=== PATIENT | female | born 1990 | race Caucasian/White ===

== ENCOUNTER → 2018-01-20 | Day surgery (SDC) | payer BC ==
[~2018-01-20] MED LIST: HYDROmorphone 2 MG/ML VIAL IV; LIDOCAINE 1% PF 2 ML VIAL. ID; MORPHINE SULFATE 2 MG/ML DISP.SYRIN. IV; ONDANSETRON PF 4 MG/2 ML VIAL. IV; PROCHLORPERAZINE 10 MG/2 ML VIAL. IV; PROPOFOL 20 ML IV; PROPOFOL 60 ML IV; fentaNYL PF VIAL 100 MCG/2 ML VIAL IV
[2018-01-20 08:34] LABS: NEG OBC UR NEG; POS OBC UR POS; U PREG PATIENT NEGATIVE (NEG)
[2018-01-20] MEDS: IV RINGERS,LACTATED 1000ML 1,000 ML IV (08:40)
== END | disposition home or self-care (01) ==
LOC: ENDOS 08:11
DX: Z09 Encounter for follow-up examination after completed treatment for conditions other than malignant neoplasm (principal); K50.10 Crohn's disease of large intestine without complications; J45.909 Unspecified asthma, uncomplicated; F41.9 Anxiety disorder, unspecified; D64.9 Anemia, unspecified; K64.9 Unspecified hemorrhoids; K21.0 Gastro-esophageal reflux disease with esophagitis; K62.89 Other specified diseases of anus and rectum; K31.89 Other diseases of stomach and duodenum
CPT/HCPCS: 43239; 81025; 88305; 88342; J2704

== ENCOUNTER 2021-01-05 17:13 | Inpatient (IN) | payer BC ==
[~2021-01-05] VITALS: Ht 162.6 cm; Wt 77.1 kg
[~2021-01-05 17:13] MED LIST changes: +ADAL40PE SQ; +BIRTH CONTROL; -HYDROmorphone 2 MG/ML VIAL IV; -LIDOCAINE 1% PF 2 ML VIAL. ID; -MORPHINE SULFATE 2 MG/ML DISP.SYRIN. IV; +MULT-445 PO; -ONDANSETRON PF 4 MG/2 ML VIAL. IV; +PNV1TABL25 PO; -PROCHLORPERAZINE 10 MG/2 ML VIAL. IV; -PROPOFOL 20 ML IV; -PROPOFOL 60 ML IV; -fentaNYL PF VIAL 100 MCG/2 ML VIAL IV
[2021-01-05] MEDS ORDERED: OXYTOCIN 10 UNIT/ML VIAL. ONE (17:18)
[2021-01-05] MEDS ORDERED: OXYTOCIN 30 UNIT/500 ML PREMIX 500 ML IV ONE (17:18)
[2021-01-05] MEDS ORDERED: OXYTOCIN PREMIX 30 UNIT/500 ML NS BAG. IV ONE (18:00)
[2021-01-05] MEDS ORDERED: IV RINGERS,LACTATED 1000ML 1,000 ML IV SCH (18:00)
[2021-01-05] MEDS ORDERED: 0.9 % SODIUM CHLORIDE 10 ML DISP.SYRIN. IV PRN ×2 (18:00→18:30)
[2021-01-05] MEDS ORDERED: OXYTOCIN 30 UNIT/500 ML PREMIX 500 ML IV PRN ×3 (18:00→18:30)
[2021-01-05] MEDS ORDERED: LIDOCAINE 1% PF 30 ML VIAL. INJ PRN (18:00)
[2021-01-05 18:03] LABS: BASO # 0.1 x10^3/uL (0.0-0.2); BASO % 1 % (0-3); EOS # 0.5 x10^3/uL (0.0-0.7); EOS % 3 % (0-3); HEMATOCRIT 32.6 % (36.0-47.0); HEMOGLOBIN 10.9 g/dL (12.0-15.5); LYMPH # 2.9 x10^3/uL (1.0-4.8); LYMPH % 17 % (24-48); MEAN CORPUSCULAR HEMOGLOBIN 30 pg (25-35); MEAN CORPUSCULAR HGB CONC 34 g/dL (31-37); MEAN CORPUSCULAR VOLUME 88 fL (79-100); MONO # 1.2 x10^3/uL (0.0-1.1); MONO % 7 % (0-9); NEUT # 12.2 x10^3/uL (1.8-7.7); NEUT % 72 % (31-73); PLATELET COUNT 305 x10^3/uL (140-400); RED BLOOD COUNT 3.69 x10^6/uL (3.50-5.40); RED CELL DISTRIBUTION WIDTH 12.4 % (11.5-14.5); WHITE BLOOD COUNT 16.8 x10^3/uL (4.0-11.0)
[2021-01-05] MEDS ORDERED: fentaNYL PF VIAL 100 MCG/2 ML VIAL ONE (18:03)
--- NOTE | 2021-01-05 18:14 | PDOC1 ---
OB - History Hx of Present Care: Good Care Ultrasounds: Normal mid trimester US Obstetrical Complications: None Medical Complications: None Past Family/Social History * Past Medical, Surgical, Family and Obstetric Histories reviewed from chart. Blood Type: Unknown Rubella: Unknown RPR/VDRL: Unknown GBS Status: Unknown HBsAG: Unknown OB - Chief Complaint & HPI Date of Admission: Date of Admission: Jan 05, 2021 at 17:13 Chief Complaint/History : 7 Para: 2 EGA: 38 Reason for admission: active labor Admission Nurse Assessment Rev: Yes OB - Admission Exam Physical Exam Vitals: VS - Last 72 Hours, by Label Date Time Temp Pulse Resp B/P (MAP) Pulse Ox O2 Delivery O2 Flow Rate FiO2 01/05/21 18:04 Room Air HEENT: Normal Heart: Regular Rate Lungs: Clear Abdomen: Gravid, Non tender, Soft Extremities: Edema Reflexes: Normal Cervical Dilatation: 10cm Effacement: 100% Station: +3 Membranes: Ruptured Amniotic Fluid: Clear Heart Rate: Normal Accelerations: Accelerations Present Decelerations: No decelerations Contractions on Admission: < 5 Minutes Apart Intensity: Firm Text A: 38 wks IUP Active labor P: Arrived by ambulance with precipitous delivery shortly after arrival. FARRAH COOPER Jr, MD Jan 05, 2021 18:14
[2021-01-05] MEDS ORDERED: fentaNYL PF VIAL 100 MCG/2 ML VIAL IV ONE (18:15)
--- NOTE | 2021-01-05 18:22 | PDOC ---
VAGINAL DELIVERY DATE DATE: 01/05/21 TIME: 18:14 : 7 Para: 3 EGA: 38 VAGINAL DELIVERY: VTX VACCUM ASSISTED: No PLACENTA: Spontaneous 8/9 SEX: Male WEIGHT Weight [ pending ] Nuchal Cord: Yes, Times 2 (and true knot) Amniotic Fluid: Clear PAIN: Natural EPISIOTOMY: No EXTENSION: Yes (2nd degree midline laceration) REPAIRED WITH 2-0 vicryl EBL 300 ml COMPLICATIONS none CONDITION pt. stable Signs of Intrauterine Infectio: None Shoulder Dystocia: No FARRAH COOPER Jr, MD Jan 05, 2021 18:22
[2021-01-05] MEDS ORDERED: TDaP (Adacel) per PROTOCOL. MC PRN (18:30)
[2021-01-05] MEDS ORDERED: PHENYLEPH/MINERAL OIL/PETROLAT RECTAL OINTMENT TUBE. RC PRN (18:30)
[2021-01-05] MEDS ORDERED: DOCUSATE SODIUM 100 MG CAPSULE. PO PRN (18:30)
[2021-01-05] MEDS ORDERED: ZOLPIDEM 5 MG TABLET. PO PRN (18:30)
[2021-01-05] MEDS ORDERED: BENZOCAINE 20% TOPICAL AEROSOL SPRAY 57GM CAN. TP PRN (18:30)
[2021-01-05] MEDS ORDERED: HYDROCORTISONE 1% TOPICAL OINTMENT 30GM TUBE. TP PRN (18:30)
[2021-01-05] MEDS ORDERED: diphenhydrAMINE HCL 25 MG CAPSULE PO PRN (18:30)
[2021-01-05] MEDS ORDERED: ACETAMINOPHEN 325 MG TABLET. PO PRN (18:30)
[2021-01-05] MEDS ORDERED: MAGNESIUM HYDROXIDE 2,400 MG/30 ML ORAL.SUSP. PO PRN (18:30)
[2021-01-05] MEDS ORDERED: MAG HYDROX/ALUMINUM HYD/SIMETH 30 ML ORAL.SUSP PO PRN (18:30)
[2021-01-05] MEDS ORDERED: SIMETHICONE 80 MG TAB.CHEW PO PRN (18:30)
[2021-01-05] MEDS ORDERED: MMR per PROTOCOL. MC PRN (18:30)
[2021-01-05] MEDS: IBUPROFEN 400 MG TABLET. PO PRN (19:06)
[2021-01-05 20:10] VITALS: BP 109/80
[2021-01-05 21:30] VITALS: BP 119/62
[2021-01-05] MEDS: oxyCODONE/APAP 5/325 1 TAB TABLET PO PRN (21:55)
[2021-01-06 01:00] VITALS: BP 102/52
[2021-01-06] MEDS: IBUPROFEN 400 MG TABLET. PO PRN ×3 (03:10→19:52)
[2021-01-06 04:45] VITALS: BP 106/53
[2021-01-06] MEDS ORDERED: FERROUS SULFATE 325 MG TABLET. PO SCH (08:00)
[2021-01-06 08:25] LABS: BASO # 0.1 x10^3/uL (0.0-0.2); BASO % 1 % (0-3); EOS # 0.6 x10^3/uL (0.0-0.7); EOS % 4 % (0-3); HEMOGLOBIN 8.6 g/dL (12.0-15.5); LYMPH # 2.8 x10^3/uL (1.0-4.8); LYMPH % 20 % (24-48); MEAN CORPUSCULAR HEMOGLOBIN 29 pg (25-35); MEAN CORPUSCULAR HGB CONC 33 g/dL (31-37); MEAN CORPUSCULAR VOLUME 88 fL (79-100); MONO # 1.3 x10^3/uL (0.0-1.1); MONO % 10 % (0-9); NEUT # 9.2 x10^3/uL (1.8-7.7); NEUT % 66 % (31-73); PLATELET COUNT 256 x10^3/uL (140-400); RED BLOOD COUNT 2.96 x10^6/uL (3.50-5.40); RED CELL DISTRIBUTION WIDTH 12.5 % (11.5-14.5)
[2021-01-06] MEDS ORDERED: MULTIVITAMIN with MINERAL TABLET. PO SCH (09:00)
[2021-01-06 13:00] VITALS: BP 102/61
--- NOTE | 2021-01-06 14:13 | PDOC ---
OB Progress Note Date of Service 01/06/21 Time of Evaluation 1400 Notes Pt. feeling well. No complaints. Lab Laboratory Tests Test 01/05/21 17:25 01/05/21 20:30 01/06/21 08:10 White Blood Count 16.8 x10^3/uL (4.0-11.0) 14.0 x10^3/uL (4.0-11.0) Red Blood Count 3.69 x10^6/uL (3.50-5.40) 2.96 x10^6/uL (3.50-5.40) Hemoglobin 10.9 g/dL (12.0-15.5) 8.6 g/dL (12.0-15.5) Hematocrit 32.6 % (36.0-47.0) 26.0 % (36.0-47.0) Mean Corpuscular Volume 88 fL (79-100) 88 fL (79-100) Mean Corpuscular Hemoglobin 30 pg (25-35) 29 pg (25-35) Mean Corpuscular Hemoglobin Concent 34 g/dL (31-37) 33 g/dL (31-37) Red Cell Distribution Width 12.4 % (11.5-14.5) 12.5 % (11.5-14.5) Platelet Count 305 x10^3/uL (140-400) 256 x10^3/uL (140-400) Neutrophils (%) (Auto) 72 % (31-73) 66 % (31-73) Lymphocytes (%) (Auto) 17 % (24-48) 20 % (24-48) Monocytes (%) (Auto) 7 % (0-9) 10 % (0-9) Eosinophils (%) (Auto) 3 % (0-3) 4 % (0-3) Basophils (%) (Auto) 1 % (0-3) 1 % (0-3) Neutrophils # (Auto) 12.2 x10^3/uL (1.8-7.7) 9.2 x10^3/uL (1.8-7.7) Lymphocytes # (Auto) 2.9 x10^3/uL (1.0-4.8) 2.8 x10^3/uL (1.0-4.8) Monocytes # (Auto) 1.2 x10^3/uL (0.0-1.1) 1.3 x10^3/uL (0.0-1.1) Eosinophils # (Auto) 0.5 x10^3/uL (0.0-0.7) 0.6 x10^3/uL (0.0-0.7) Basophils # (Auto) 0.1 x10^3/uL (0.0-0.2) 0.1 x10^3/uL (0.0-0.2) Treponema pallidum Antibody Nonreactive (Nonreactive) SARS-CoV-2 Antigen (Rapid) Negative (NEGATIVE) Laboratory Tests Test 01/05/21 17:25 01/05/21 20:30 01/06/21 08:10 White Blood Count 16.8 x10^3/uL (4.0-11.0) 14.0 x10^3/uL (4.0-11.0) Red Blood Count 3.69 x10^6/uL (3.50-5.40) 2.96 x10^6/uL (3.50-5.40) Hemoglobin 10.9 g/dL (12.0-15.5) 8.6 g/dL (12.0-15.5) Hematocrit 32.6 % (36.0-47.0) 26.0 % (36.0-47.0) Mean Corpuscular Volume 88 fL (79-100) 88 fL (79-100) Mean Corpuscular Hemoglobin 30 pg (25-35) 29 pg (25-35) Mean Corpuscular Hemoglobin Concent 34 g/dL (31-37) 33 g/dL (31-37) Red Cell Distribution Width 12.4 % (11.5-14.5) 12.5 % (11.5-14.5) Platelet Count 305 x10^3/uL (140-400) 256 x10^3/uL (140-400) Neutrophils (%) (Auto) 72 % (31-73) 66 % (31-73) Lymphocytes (%) (Auto) 17 % (24-48) 20 % (24-48) Monocytes (%) (Auto) 7 % (0-9) 10 % (0-9) Eosinophils (%) (Auto) 3 % (0-3) 4 % (0-3) Basophils (%) (Auto) 1 % (0-3) 1 % (0-3) Neutrophils # (Auto) 12.2 x10^3/uL (1.8-7.7) 9.2 x10^3/uL (1.8-7.7) Lymphocytes # (Auto) 2.9 x10^3/uL (1.0-4.8) 2.8 x10^3/uL (1.0-4.8) Monocytes # (Auto) 1.2 x10^3/uL (0.0-1.1) 1.3 x10^3/uL (0.0-1.1) Eosinophils # (Auto) 0.5 x10^3/uL (0.0-0.7) 0.6 x10^3/uL (0.0-0.7) Basophils # (Auto) 0.1 x10^3/uL (0.0-0.2) 0.1 x10^3/uL (0.0-0.2) Treponema pallidum Antibody Nonreactive (Nonreactive) SARS-CoV-2 Antigen (Rapid) Negative (NEGATIVE) Medications Current Medications Oxytocin (Pitocin) 10 unit STK-MED ONCE .ROUTE ; Start 01/05/21 at 17:18; Stop 01/05/21 at 17:18; Status DC Oxytocin 500 ml @ As Directed STK-MED ONCE IV ; Start 01/05/21 at 17:18; Stop 01/05/21 at 17:18; Status DC Sodium Chloride (Normal Saline Flush) 3 ml QSHIFT PRN IV AFTER MEDS AND BLOOD DRAWS; Start 01/05/21 at 18:00 Ringer's Solution 1,000 ml @ 125 mls/hr Q8H IV ; Start 01/05/21 at 18:00 Lidocaine HCl (Xylocaine 1% Pf 30ml Vial) 30 ml 1X PRN PRN INJ SEE COMMENTS Last administered on 01/05/21at 18:04; Start 01/05/21 at 18:00; Stop 01/07/21 at 17:59 Oxytocin 500 ml @ 0 mls/hr CONT PRN IV SEE I/O RECORD; Start 01/05/21 at 18:00 Oxytocin 500 ml @ 0 mls/hr CONT PRN PRN IV Post delivery bleeding; Start 01/05/21 at 18:00 Ibuprofen (Motrin) 800 mg PRN Q6HRS PRN PO PAIN Last administered on 01/06/21at 03:10; Start 01/05/21 at 18:00; Stop 01/06/21 at 11:29; Status DC Fentanyl Citrate (Fentanyl 2ml Vial) 100 mcg 1X ONCE IV Last administered on 01/05/21at 18:04; Start 01/05/21 at 18:15; Stop 01/05/21 at 18:16; Status DC Fentanyl Citrate (Fentanyl 2ml Vial) 100 mcg STK-MED ONCE .ROUTE ; Start 01/05/21 at 18:03; Stop 01/05/21 at 18:03; Status DC Sodium Chloride (Normal Saline Flush) 10 ml QSHIFT PRN IV AFTER MEDS AND BLOOD DRAWS; Start 01/05/21 at 18:30 Oxytocin 500 ml @ 62.5 mls/hr CONT PRN IV SEE I/O RECORD; Start 01/05/21 at 18:30; Stop 01/06/21 at 02:29; Status DC Acetaminophen (Tylenol) 650 mg PRN Q6HRS PRN PO TEMP > 100.3'F; Start 01/05/21 at 18:30 Ibuprofen (Motrin) 800 mg PRN Q8HRS PRN PO INFLAMMATION/PAIN PREVENTION Last administered on 01/06/21at 11:49; Start 01/05/21 at 18:30 Docusate Sodium (Colace) 100 mg PRN BID PRN PO CONSTIPATION; Start 01/05/21 at 18:30 Magnesium Hydroxide (Milk Of Magnesia) 2,400 mg PRN DAILY PRN PO CONSTIPATION; Start 01/05/21 at 18:30 Al Hydroxide/Mg Hydroxide (Mylanta Plus Xs) 30 ml PRN Q4HRS PRN PO HEARTBURN / GAS; Start 01/05/21 at 18:30 Simethicone (Gas-X) 80 mg PRN AFTMEALHC PRN PO GAS / BLOATING; Start 01/05/21 at 18:30 Diphenhydramine HCl (Benadryl) 25 mg PRN Q6HRS PRN PO ITCHING; Start 01/05/21 at 18:30 Benzocaine (Americaine) 1 spray PRN QID PRN TP TOPICAL PAIN; Start 01/05/21 at 18:30 Phenyleph/Shark Oil/Min Oil/Petrol (Preparation H) 1 pelon PRN QID PRN RC RECTAL PAIN; Start 01/05/21 at 18:30 Hydrocortisone (Cortaid) 1 pelon PRN QID PRN TP PERINEAL PAIN; Start 01/05/21 at 18:30 Ferrous Sulfate (Feosol) 325 mg BIDWMEALS PO ; Start 01/06/21 at 08:00 Zolpidem Tartrate (Ambien) 5 mg PRN QHS PRN PO INSOMNIA, MAY REPEAT X1; Start 01/05/21 at 18:30 Info (Do NOT chart on this placeholder) 1 ea 1X PRN PRN MC SEE COMMENTS; Start 01/05/21 at 18:30 Info (Do NOT chart on this placeholder) 1 ea 1X PRN PRN MC SEE COMMENTS; Start 01/05/21 at 18:30 Oxycodone/ Acetaminophen (Percocet 5/325) 2 tab PRN Q4HRS PRN PO MODERATE PAIN, SEVERE PAIN Last administered on 01/05/21at 21:55; Start 01/05/21 at 18:30 Multivitamins (Thera M Plus) 1 tab DAILY PO ; Start 01/06/21 at 09:00 Oxytocin (Oxytocin Premix Infusion) 30 unit STK-MED ONCE IV ; Start 01/05/21 at 18:00; Stop 01/06/21 at 13:25; Status DC Exam Abd:soft, non tender, fundus firm Assessment PPD#1 s/p Plan of Care: Continue current Tx, Mgmt FARRAH COOPER Jr, MD Jan 06, 2021 14:13
[2021-01-06] MEDS: oxyCODONE/APAP 5/325 1 TAB TABLET PO PRN (15:10)
[2021-01-06 20:28] VITALS: BP 110/63
[2021-01-07] MEDS: oxyCODONE/APAP 5/325 1 TAB TABLET PO PRN (00:34)
[2021-01-07 04:30] VITALS: BP 106/62
[2021-01-07 13:30] VITALS: BP 107/59
--- NOTE | 2021-01-07 13:30 | NUR ---
Pt. dc'd to home with family. Pt. plans to follow-up with Dr. Moser in 6 weeks. Pt. ambulated to personal vehicle accompanied by RN and family.
== END 2021-01-07 14:30 | disposition home or self-care (01) | DRG 807 ==
LOC: EDBD 17:13 → 3 SO LND 17:13 → MERGE 17:13 → 3 NORTH 20:00
PROVIDERS: ADMIT Obstetrics & Gynecology; ATTEND Obstetrics & Gynecology
PROC: 10E0XZZ Delivery of Products of Conception, External Approach (ICD-10-PCS; principal; 2021-01-05)
PROC: 0KQM0ZZ Repair Perineum Muscle, Open Approach (ICD-10-PCS; 2021-01-05)
DX: O62.3 Precipitate labor (principal); Z37.0 Single live birth; Z3A.38 38 weeks gestation of pregnancy; Z20.822 Contact with and (suspected) exposure to COVID-19; O69.2XX0 Labor and delivery complicated by other cord entanglement, with compression, not applicable or unspecified; O70.1 Second degree perineal laceration during delivery
CPT/HCPCS: 36415; 85025; 86592; 86850; 86900; 86901; 87426; J2590; J3010; J3490; U0003; G0378